=== PATIENT | female | born 1995 | race Caucasian/White ===

== ENCOUNTER 2021-05-14 03:43 | Emergency (ER) | payer BC, MEDICAID ==
[2021-05-14 05:04] LABS: BLOOD UREA NITROGEN,BUN 16 mg/dL (7.0-18.0); CARBON DIOXIDE,CO2 23.9 mmol/L (21.0-32.0); CHLORIDE,CL 105 mmol/L (98-107); GLUCOSE RANDOM 99 mg/dL (74-106); POTASSIUM,K 4.2 mmol/L (3.5-5.1); SODIUM,NA 139 mmol/L (136-145)
[2021-05-14] MEDS ORDERED: cefTRIAXone 500 MG in Lidocaine 1% 1 ML IM ONE (05:49)
[2021-05-14] MEDS ORDERED: Doxycycline 100 MG Cap PO ONE (05:54)
[2021-05-14] MEDS ORDERED: Acetaminophen 500 MG Tab PO ONE (05:54)
[2021-05-14] MEDS ORDERED: Ibuprofen 600 MG Tab PO ONE (05:55)
[2021-05-14 06:17] VITALS: BP 115/66; PULSE 102
[2021-05-15 13:18] LABS: C.TRACHOMATIS BY TMA Negative (Negative); N.GONORRHOEAE BY TMA Negative (Negative)
== END 2021-05-14 06:20 | disposition home or self-care (01) ==
LOC: MW.ED 03:43
DX: M79.10 Myalgia, unspecified site (principal); Z88.0 Allergy status to penicillin; Z20.822 Contact with and (suspected) exposure to COVID-19
CPT/HCPCS: 36415; 71045; 80053; 81003; 81025; 84484; 85025; 87491; 87591; 87635; 93005; 96372; 99284; A9270; J0696; U0002

== ENCOUNTER 2022-03-16 08:35 | Day surgery (SDC) | payer BC ==
[~2022-03-16 08:35] MED LIST: Lactated Ringers 1,000 ML IV SCH; Propofol 200 MG/20 ML SDV ONE
[2022-03-16] MEDS ORDERED: Lidocaine 2% 5 ML SDV ONE (10:13)
[2022-03-16] MEDS ORDERED: Ketorolac 30 MG/ML SDV ONE (10:22)
[2022-03-16] MEDS ORDERED: Propofol 200 MG/20 ML SDV ONE (10:27)
[2022-03-16] MEDS ORDERED: Lactated Ringers 1,000 ML IV SCH (11:15)
== END 2022-03-16 11:35 | disposition home or self-care (01) ==
LOC: MW.SDS 08:35
PROVIDERS: ATTEND Surgery
DX: K29.50 Unspecified chronic gastritis without bleeding (principal); F41.9 Anxiety disorder, unspecified; F32.A Depression, unspecified; K21.9 Gastro-esophageal reflux disease without esophagitis; Z79.899 Other long term (current) drug therapy; Z88.0 Allergy status to penicillin; Z98.890 Other specified postprocedural states; Z87.891 Personal history of nicotine dependence
CPT/HCPCS: 43239; 45380; 81025; J1885; J2704; J7120

== ENCOUNTER 2023-06-02 13:51 | Emergency (ER) | payer BC ==
[2023-06-02] MEDS: Sodium Chloride 0.9% 10 ML Syringe FLUSH PRN (15:56)
[2023-06-02] MEDS: Sodium Chloride 0.9% 2.5 ML Syringe FLUSH PRN (15:56)
[2023-06-02] MEDS: Sodium Chloride 0.9% 1,000 ML IV STA (15:56)
[2023-06-02] MEDS: Ondansetron 4 MG/2 ML SDV IVPUSH STA (15:56)
[2023-06-02 16:11] LABS: BASOPHILS ABSOLUTE AUTO 0.04 K/uL (0.00-0.20); BASOPHILS PERCENT AUTO 0.5 % (0.0-1.0); EOSINOPHILS ABSOLUTE AUTO 0.03 K/uL (0.00-0.45); EOSINOPHILS PERCENT AUTO 0.4 % (0.0-6.0); HEMATOCRIT 34.8 % (37.0-47.0); IMMATURE GRAN ABSOLUTE AUTO 0.08 K/uL (0.00-0.05); IMMATURE GRAN PERCENT AUTO 1.1 % (0.0-0.4); LYMPHOCYTES ABSOLUTE AUTO 1.84 K/uL (1.00-4.80); LYMPHOCYTES PERCENT AUTO 25.1 % (24.0-44.0); MEAN CORPUSCULAR HGB CONC 31.6 g/dL (32.0-36.0); MEAN PLATELET VOLUME 9.9 fL (9.4-12.3); MONOCYTES PERCENT AUTO 6.8 % (0.0-8.0); NEUTROPHILS ABSOLUTE AUTO 4.84 K/uL (1.80-7.70); NEUTROPHILS PERCENT AUTO 66.1 % (41.0-71.0); PLATELET COUNT,PLT 300 K/uL (150-400); RED BLOOD CELL COUNT 4.58 M/uL (4.10-5.30); WHITE BLOOD CELL COUNT,WBC 7.33 K/uL (3.9-11.3)
[2023-06-02 17:34] LABS: A/G RATIO 1.2 (0.9-1.6); ALBUMIN 4.3 g/dL (3.4-5.0); BILIRUBIN TOTAL 0.5 mg/dL (0.2-1.0); CALCIUM 9.2 mg/dL (8.5-10.1); CARBON DIOXIDE,CO2 21.5 mmol/L (21.0-32.0); CREATININE 0.7 mg/dL (0.6-1.0); EST CRCL DRUG DOSING (CG) 97.17 mL/min; MAGNESIUM 1.9 mg/dL (1.8-2.4); POTASSIUM,K 3.6 mmol/L (3.5-5.1)
== END 2023-06-02 18:17 | disposition home or self-care (01) ==
LOC: MW.ED 13:51
DX: O26.851 Spotting complicating pregnancy, first trimester (principal); Z3A.01 Less than 8 weeks gestation of pregnancy; Z67.10 Type A blood, Rh positive; Z88.0 Allergy status to penicillin
CPT/HCPCS: 36415; 76817; 80053; 83690; 83735; 84702; 85025; 86900; 86901; 96361; 96374; 99284; J2405; J3490; J7030